=== PATIENT | male | born 1970 | race African-American/Black ===

== ENCOUNTER 2023-11-15 10:42 | Outpatient (CLI) | payer MEDICAID | END 2023-11-15 10:43 | disposition home or self-care (01) | LOC: CSHRAD 10:42 | PROVIDERS: ATTEND Nurse Practitioner | DX: R76.11 Nonspecific reaction to tuberculin skin test without active tuberculosis (principal) | CPT/HCPCS: 71046 ==

== ENCOUNTER 2025-03-26 13:04 | Outpatient (CLI) | payer OTHER | END 2025-03-26 13:05 | disposition home or self-care (01) | LOC: CSHRAD 13:04 | PROVIDERS: ATTEND Nurse Practitioner | DX: R76.11 Nonspecific reaction to tuberculin skin test without active tuberculosis (principal); R91.8 Other nonspecific abnormal finding of lung field | CPT/HCPCS: 71046 ==